=== PATIENT | male | born 1970 | race African-American/Black ===

== ENCOUNTER 2021-03-08 19:57 | Emergency (ER) | payer MEDICARE ==
[~2021-03-08] VITALS: Ht 172.7 cm; Wt 79.0 kg
[2021-03-08 20:15] VITALS: BP 155/86
== END 2021-03-08 22:30 | disposition left against medical advice (07) ==
LOC: ER 19:57
DX: S01.81XA Laceration without foreign body of other part of head, initial encounter (principal); Y08.89XA Assault by other specified means, initial encounter; Y93.89 Activity, other specified; Y92.89 Other specified places as the place of occurrence of the external cause; Y99.8 Other external cause status
CPT/HCPCS: 12011; 99283